=== PATIENT | male | born 1955 | race Caucasian/White ===

== ENCOUNTER 2023-05-28 08:36 | Outpatient (OUT) | payer MEDICARE, OTHER, SELFPAY ==
--- NOTE | 2023-05-28 | VEIN_ITS ---
Patient: SUNNY VILLANUEVA Exam Date: 05/28/2023 : 1955 Gender:M Ordering : DR PRINCESS COLEY M.D. Admission #: [id number] Family : Order #: [id number] CLICK HERE TO VIEW EXAM RADIOLOGY REPORT PROCEDURE: VC EXT VENOUS REFLUX TC LMTD COMPARISON: None. INDICATIONS: Pain due to varicose veins of bilateral legs I83.813 TECHNIQUE: Duplex imaging of the lower extremity to assess the deep and superficial venous system for the presence of deep or superficial venous incompetence and to document the location and severity of disease. The study includes evaluation of the great saphenous vein (GSV), anterior accessory saphenous vein (AASV) and small saphenous vein (SSV). Patient scanned in reverse Trendelenburg and standing. FINDINGS: RIGHT LOWER EXTREMITY: Saphenofemoral Junction Reflux: Yes 10.4mm 4.8 sec GSV: Diam (mm) Reflux/ Time (sec) Proximal Thigh 12.5 Yes 1.6 Mid Thigh 5.6 Yes 4.0 Distal Thigh 5.5 Yes 0.5 Prox Calf 4.8 Yes 2.7 Mid Calf 3.6 Yes 1.7 Saphenopopliteal Junction Reflux: 6.4mm Yes 1.6 SSV: Proximal Calf 5.7 Yes 2.0 Mid Calf 4.2 Yes 0.3 AASV: Proximal Thigh 6.1 Yes 1.4 Mid Thigh 3.4 Yes 2.1 Distal Thigh Thrombi: No acute or chronic thrombus. Compressibility: Normal. Flow: Severe deep venous reflux. Preforator: Distal medial lower leg 3.9mm with 0.5s reflux. Distal medial lower leg 4.0 mm with 0.5s reflux. Tech Note: Plaque noted in proximal NEUROLOGY EPILEPSY PHYSICIAN. Thigh extention of SSV. AASV becomes tortuous approximately 10 cm from SFJ. Incompetent varicose vein medial knee measures 5.1 mm with 0.8s reflux. Medial calf varicosity measures 3.3 mm with 0.5s reflux. Proximal anterior lower leg 1.4s reflux. LEFT LOWER EXTREMITY: Saphenofemoral Junction Reflux: Yes 10.2 mm 3.0 sec GSV: Diam (mm) Reflux/Time (sec) Proximal Thigh 7.6 Yes 1.3 Mid Thigh 5.4 Yes 0.6 Distal Thigh 4.9 Yes 0.2 Prox Calf 5.1 Yes 2.2 Mid Calf 3.6 Yes 0.3 Saphenopopliteal Junction Relux: 5.5 mm Yes 3.7 SSV: Proximal Calf 5.5 Yes 4.8 Mid Calf 3.5 Yes 0.3 AASV: Proximal Thigh 6.5 Yes 0.8 Mid Thigh 2.9 Yes 0.4 Distal Thigh Thrombi: No acute or chronic thrombus. Compressibility: Normal. Flow: Mild deep venous reflux. Golf Course Superintendent: Distal medial lower leg 4.3mm with 2.5s reflux. Mid medial lower leg 5.9mm with 4.3s reflux. Tech Note: Thigh extention of SSV. AASV becomes tortuous approximately 6 cm from SFJ. Incompetent varicose vein measures 4.0 mm with 4.5s reflux. Distal medial lower leg varicose vein off automotive sales associate measures 6.2 mm with 1.1s reflux. Distal medial lower leg varicose vein measures 3.3 mm with 0.3s reflux. Varicose vein proximal posterior calf measures 2.8 mm with 2.5s reflux. CONCLUSION: 1. Dilated, incompetent bilateral great saphenous veins, bilateral small saphenous veins, and right anterior accessory saphenous vein. 2. Numerous dilated and incompetent branch saphenous varicosities bilaterally. 3. Dilated and incompetent distal lower extremity automotive sales associate veins bilaterally. Dictated by: Glen Mccormack M.D. on 05/28/2023 at 10:35 Approved by: Glen Mccormack M.D. on 05/28/2023 at 11:59
--- NOTE | 2023-05-28 | VEIN_ITS ---
Patient: SUNNY VILLANUEVA Exam Date: 05/28/2023 : 1955 Gender:M Ordering : DR PRINCESS COLEY M.D. Admission #: [id number] Family : Order #: [id number] CLICK HERE TO VIEW EXAM RADIOLOGY REPORT PROCEDURE: VC FACILITY EST COMPREHENSIVE VEIN CENTER - OFFICE VISIT INITIAL COMPARISON: None. PROGRESS NOTES: [age] year old male who presents with a 3 year history of bulging dilated veins, leg pain, swelling, muscle cramping, and edema. The patient's right leg symptoms are worse than the left. There has been a progression of symptoms over past 3 years. This increases with prolonged leg dependency. The patient describes an improvement with rest and elevation. The patient denies any signs and symptoms to suggest arterial ischemia. The patient describes a family history varicose vein on maternal side, heart disease, hypertension. The patient has drinking and smoking history : no alcohol consumption. Quit smoking 2000. Patient has a past medical history significant for hypertension, myocardial infarction, hypercholesterolemia, recent back surgery. The patient denies a history of deep venous thrombus or pulmonary embolus. See separate history and physical for medication list. No prior treatment for varicose or spider veins. Prior treatment included use of compression stockings. After review of nurse notes, history and physical exam I discussed at length the pathophysiology of venous hypertension and possible treatments, therapies and strategies available. We discussed at length the importance of elevating the lower extremities above the level of the heart, increased physical activity and compression stocking use. Ultrasound venous reflux study performed today was discussed at length with the patient. The report demonstrates abnormally dilated and incompetent bilateral great saphenous veins, bilateral small saphenous veins, right anterior accessory saphenous vein, and numerous incompetent branch saphenous varicosities bilaterally.. PHYSICAL EXAM: The right leg demonstrates several varicosities, a few scattered spider veins, no ulceration, moderate edema, no skin discoloration. The left leg demonstrates several varicosities, a few scattered spider veins, no ulceration, moderate edema, no skin discoloration. Both thighs, legs and feet were symmetrically warm to the touch. Good posterior tibial and dorsalis pedis pulses were present bilaterally. VEIN/VC Facility EST Comprehensive IMPRESSION: 1. Extensive bilateral lower extremity venous insufficiency 2. Numerous bilateral lower extremity varicose veins 3. Moderate bilateral lower extremity subcutaneous edema 4. No flow significant arterial disease 5. CEAP: C3, EC, AP, AR PLAN: 1. Continued use of compression stockings 2. Elevated legs and increased physical activity symptomatic relief 3. Endovenous laser ablation of bilateral great saphenous veins, on bilateral small saphenous veins, and right anterior accessory saphenous vein. 4. Microfoam chemical ablation of bilateral incompetent branch saphenous varicosities. Nurse notes, history and physical were reviewed and confirmed, see attached forms. The nurse was present throughout the physical exam and consultation Dictated by: Glen Mccormack M.D. on 05/28/2023 at 11:59 Approved by: Glen Mccormack M.D. on 05/28/2023 at 12:06
== END 2023-05-28 08:37 | disposition home or self-care (01) ==
LOC: VC 08:37
PROVIDERS: PCP Radiology Diagnostic Radiology; Visit Provider Radiology Diagnostic Radiology
DX: I83.813 Varicose veins of bilateral lower extremities with pain (principal)
CPT/HCPCS: 93970; G0463

== ENCOUNTER 2023-06-05 13:09 | Outpatient (OUT) | payer MEDICARE, OTHER, SELFPAY ==
--- NOTE | 2023-06-05 13:10 | VEIN_ITS ---
[address] [address] Patient Name: SUNNY VILLANUEVA MRN: [id number] date: 1955 Sex: M Assigned Patient Location: Current Patient Location: Accession/Order Number: [id number] Exam Date: 06/05/2023 13:15 Report Date: 06/06/2023 07:15 At the request of: PRINCESS COLEY Procedure: VC Endovenous Ablation 1VeinRT EXAMINATION: VC Endovenous Ablation 1VeinRT HISTORY: I83.813 Pain due to varicose veins of bilateral legs COMPARISON: No relevant comparison available. TECHNIQUE: The risks and benefits of the procedure had been previously discussed, and were rediscussed at length. Informed written consent was obtained. Nilam Whyte and Ac Corey assisted. Time out procedure was performed. The right lower extremity was prepared and draped in the usual sterile fashion to allow knee flexion in the sterile field. Duplex ultrasound probe was draped in a sterile cover, sterile transmission gel was used. Venous mapping was performed with the areas of dilation and large tributaries marked. The total length was 62 cm from the entry 8 cm above the medial malleolus to 3 cm below the saphenofemoral junction. The diameter of the greater saphenous vein ranged from 5-11 mm. A 30 gauge needle and 1% buffered lidocaine was used to anesthetize the entry site. A 4 mm incision was made with a scalpel and the saphenous vein was entered percutaneously under direct ultrasound guidance with a micropuncture set, a single stick was successful in gaining access. A micro-guide wire was inserted and the needle removed. A micro-set including a dilator was inserted over the microwire and the needle and dilator were removed. A 0.018 guide wire was inserted through the micro-set and threaded through the saphenous vein to the saphenofemoral junction. The dilator was removed and an introducer sheath was inserted over the wire until the end of the sheath entered the saphenofemoral junction. The dilator and wire were removed and the 600 micron fiber was introduced and placed and positioned so that it extended beyond the sheath and was 3 cm peripheral to the saphenofemoral femoral junction. Final position of the fiber was determined by ultrasound guidance and duplex imaging. Tumescent anesthetic was delivered by ultrasound guidance. 350 cc of fluid was delivered along the entire course of the saphenous vein. The solution consisted of 1000 cc of normal saline with 40 mL of 1% lidocaine and 20 mL of sodium bicarbonate. A final positioning check was made. The energy source was turned on by means of the foot pedal and the fiber and sheath were withdrawn. The total number of Joules delivered was 2900. The laser was active for 363 seconds under continuous pulse, average laser use of 8 J. Laser start time 1406. 06/05/2023 . Laser stop time 1414 06/05/2023 . A duplex ultrasound revealed compressibility and flow at the saphenofemoral junction immediately after the procedure. Hemostasis at the access site was achieved. The skin incision of the saphenous vein was closed with a 4 x 4. A compression stocking was applied. Postop instructions were given. A follow up appointment was recommended and scheduled. The patient tolerated the procedure well and was discharged in good condition . VEIN/VC Endovenous Ablation 1VeinRT IMPRESSION: Technically successful endovenous laser ablation of the right great saphenous vein Electronically authenticated by: PRINCESS COLEY Date: 06/06/2023 07:15
[2023-06-05] MEDS: LIDOCAINE HCL 10 ML, SODIUM BICARBONATE 1 MEQ INJ (13:52)
[2023-06-05] MEDS: 0.9 % SODIUM CHLORIDE 500 ML, LIDOCAINE HCL 20 ML, SODIUM BICARBONATE 10 MEQ INJ (13:53)
== END 2023-06-05 13:10 | disposition home or self-care (01) ==
LOC: VC 13:09
PROVIDERS: PCP Radiology Diagnostic Radiology; Visit Provider Radiology Diagnostic Radiology
DX: I83.813 Varicose veins of bilateral lower extremities with pain (principal)
CPT/HCPCS: 36478

== ENCOUNTER 2023-06-11 13:10 | Outpatient (OUT) | payer MEDICARE, OTHER, SELFPAY ==
--- NOTE | 2023-06-11 13:14 | VEIN_ITS ---
Patient: SUNNY VILLANUEVA Exam Date: 06/11/2023 : 1955 Gender:M Ordering : DR PRINCESS COLEY M.D. Admission #: [id number] Family : Order #: [id number] CLICK HERE TO VIEW EXAM RADIOLOGY REPORT PROCEDURE: VC EXT VENOUS RT LMTD COMPARISON: None. INDICATIONS: I80.01 Phlebitis of superficial veins of rt lower extremity TECHNIQUE: Lower extremity verduzco scale and Duplex Doppler evaluation of the deep venous system from the inguinal ligament through the calf veins. FINDINGS: REGION: Right lower extremity. THROMBI: Negative for DVT. Heat induced thrombus in GSV 3.6 cm from SFJ and extends to distal lower leg. COMPRESSIBILITY: Non-compressible segments. FLOW: Areas of no flow. OTHER: Varicose veins remain. CONCLUSION: 1. Successful post ablation occlusion of right great saphenous vein. Dictated by: Glen Mccormack M.D. on 06/11/2023 at 14:07 Approved by: Glen Mccormack M.D. on 06/11/2023 at 14:08
--- NOTE | 2023-06-11 13:14 | VEIN_ITS ---
Patient: SUNNY VILLANUEVA Exam Date: 06/11/2023 : 1955 Gender:M Ordering : DR PRINCESS COLEY M.D. Admission #: [id number] Family : Order #: [id number] CLICK HERE TO VIEW EXAM RADIOLOGY REPORT PROCEDURE: FACILITY EST LMTD VEIN CENTER - OFFICE VISIT FOLLOW UP COMPARISON: None. PROGRESS NOTES: The patient reports improvement in leg symptoms. There has been interval reduction in varicosities. The patient has followed our recommendations to walk 20-30 minutes once or twice per day since the procedure. Physical exam demonstrates decrease in varicosities of the leg. Persistent varicosities are identified along the legs bilaterally. Review of the ultrasound performed the same day demonstrates occlusive thrombus extending throughout the treated vein(s), see separate report, consistent with a successful ablation. No thrombus extending into or beyond the saphenofemoral junction. The patient expressed a desire to proceed with treatment of remaining dilated and incompetent varicosities. The patient was informed that treatment was a process and would require several procedures/sessions. VEIN/ Facility EST LMTD IMPRESSION: 1. Successful ablation of the right great saphenous vein(s). 2. Persistent dilated incompetent veins and bilateral lower extremity symptoms. PLAN: 1. Endovenous laser ablation of left great saphenous vein. Nurse notes, history and physical were reviewed and confirmed, see attached forms. The nurse was present throughout the physical exam and consultation Dictated by: Glen Mccormack M.D. on 06/11/2023 at 14:08 Approved by: Glen Mccormack M.D. on 06/11/2023 at 14:09
== END 2023-06-11 13:11 | disposition home or self-care (01) ==
LOC: VC 13:11
PROVIDERS: PCP Radiology Diagnostic Radiology; Visit Provider Radiology Diagnostic Radiology
DX: I80.01 Phlebitis and thrombophlebitis of superficial vessels of right lower extremity (principal)
CPT/HCPCS: 93971; G0463

== ENCOUNTER 2023-06-15 10:13 | Outpatient (OUT) | payer MEDICARE, OTHER, SELFPAY ==
--- NOTE | 2023-06-15 10:14 | VEIN_ITS ---
The [address] [address] Patient Name: SUNNY VILLANUEVA MRN: [id number] date: 1955 Sex: M Assigned Patient Location: Current Patient Location: Accession/Order Number: [id number] Exam Date: 06/15/2023 10:20 Report Date: 06/15/2023 11:48 At the request of: PRINCESS COLEY Procedure: VC Endovenous Ablation 1VeinLT EXAMINATION: VC Endovenous Ablation 1VeinLT HISTORY: I83.813 Pain due to varicose veins of bilateral leg veins The risks and benefits of the procedure had been previously discussed, and were rediscussed at length. Informed written consent was obtained. Clemencia Ashley RN and Suzi Escalante RDMS assisted. Time out procedure was performed. The left lower extremity was prepared and draped in the usual sterile fashion to allow knee flexion in the sterile field. Duplex ultrasound probe was draped in a sterile cover, sterile transmission gel was used. Venous mapping was performed with the areas of dilation and large tributaries marked. The total length was 62 cm from the entry 3 cm above the medial malleolus to 3 cm below the saphenofemoral junction. The diameter of the greater saphenous vein ranged from 7.6 mm. A 30 gauge needle and 1% buffered lidocaine was used to anesthetize the entry site. A 4 mm incision was made with a scalpel and the saphenous vein was entered percutaneously under direct ultrasound guidance with a micropuncture set, a single stick was successful in gaining access. A micro-guide wire was inserted and the needle removed. A micro-set including a dilator was inserted over the microwire and the needle and dilator were removed. A guide wire was inserted through the micro-set and guided through the saphenous vein to the saphenofemoral junction. The dilator was removed and an introducer sheath was inserted over the wire until the end of the sheath entered the saphenofemoral junction. The dilator and wire were removed and the 600 micron fiber was introduced and placed and positioned so that it extended beyond the sheath and was 3 cm distal to the saphenofemoral femoral junction. Final position of the fiber was determined by ultrasound guidance and duplex imaging. Tumescent anesthetic was delivered by ultrasound guidance. 350 cc of fluid was delivered along the entire course of the saphenous vein. The solution consisted of 1000 cc of normal saline with 40 mL of 1% lidocaine and 20 mL of sodium bicarbonate. A final positioning check was made. The energy source was turned on by means of the foot pedal and the fiber and sheath were withdrawn. The total number of Joules delivered was 3352. The laser was active for 419seconds under continuous pulse, average laser use of 8 J. Laser start time 11:12 AM, 06/07/2023. Laser stop time 11:23 AM, 06/15/2023. A duplex ultrasound revealed compressibility and flow at the saphenofemoral junction immediately after the procedure. Hemostasis at the access site was achieved. The skin incision of the saphenous vein was closed with a 4 x 4. A compression stocking was applied. Postop instructions were given. A follow up appointment was recommended and scheduled. The patient tolerated the procedure well. Electronically authenticated by: KATIANA CORDOBA Date: 06/15/2023 11:48
[2023-06-15] MEDS: LIDOCAINE HCL 10 ML, SODIUM BICARBONATE 1 MEQ INJ (12:16)
[2023-06-15] MEDS: 0.9 % SODIUM CHLORIDE 500 ML, LIDOCAINE HCL 20 ML, SODIUM BICARBONATE 10 MEQ INJ (12:25)
== END 2023-06-15 10:14 | disposition home or self-care (01) ==
LOC: VC 10:14
PROVIDERS: PCP Radiology Diagnostic Radiology; Visit Provider Radiology Diagnostic Radiology
DX: I83.813 Varicose veins of bilateral lower extremities with pain (principal)
CPT/HCPCS: 36478

== ENCOUNTER 2023-06-21 08:27 | Outpatient (OUT) | payer MEDICARE, OTHER, SELFPAY ==
--- NOTE | 2023-06-21 08:28 | VEIN_ITS ---
Patient: SUNNY VILLANUEVA Exam Date: 06/21/2023 : 1955 Gender:M Ordering : DR PRINCESS COLEY M.D. Admission #: [id number] Family : Order #: [id number] CLICK HERE TO VIEW EXAM RADIOLOGY REPORT PROCEDURE: [facility] EST LMTD VEIN CENTER - OFFICE VISIT FOLLOW UP [facility] PROGRESS NOTES: The patient reports improvement in leg symptoms. There has been interval reduction in varicosities. The patient has followed our recommendations to walk 20-30 minutes once or twice per day since the procedure. Patient has no known arterial vascular disease, but describes symptoms while walking the could be secondary to peripheral vascular disease. Physical exam demonstrates decrease in varicosities of the leg. Persistent varicosities are identified along the legs bilaterally. Review of the ultrasound performed the same day demonstrates occlusive thrombus extending throughout the treated vein(s), see separate report, consistent with a successful ablation. No thrombus extending into or beyond the saphenofemoral junction. The patient expressed a desire to proceed with treatment of remaining incompetent varicose veins. The patient was informed that treatment was a process and would require several procedures/sessions. VEIN/[facility] EST LMTD IMPRESSION: 1. Successful ablation of the left great saphenous vein(s). 2. Persistent incompetent varicose veins and bilateral lower extremity symptoms. PLAN: 1. Endovenous laser ablation of right small saphenous vein. 2. Ultrasound evaluation of bilateral lower extremity arteries to evaluate for arterial peripheral vascular disease which could be contributing to patient's symptoms which occur while walking. Nurse notes, history and physical were reviewed and confirmed, see attached forms. The nurse was present throughout the physical exam and consultation Dictated by: Glen Mccormack M.D. on 06/21/2023 at 11:24 Approved by: Glen Mccormack M.D. on 06/21/2023 at 11:27
--- NOTE | 2023-06-21 08:28 | VEIN_ITS ---
Patient: SUNNY VILLANUEVA Exam Date: 06/21/2023 : 1955 Gender:M Ordering : DR PRINCESS COLEY M.D. Admission #: [id number] Family : Order #: [id number] CLICK HERE TO VIEW EXAM RADIOLOGY REPORT PROCEDURE: VC EXT VENOUS LT LIMITED COMPARISON: None. INDICATIONS: I80.02 Phlebitis of superficial veins of lt lower extremity TECHNIQUE: Lower extremity verduzco scale and Duplex Doppler evaluation of the deep venous system from the inguinal ligament through the calf veins. FINDINGS: REGION: Left lower extremity. THROMBI: Negative for DVT. Heat induced thrombus in left GSV 2.8 cm from SFJ and extends to distal lower leg. COMPRESSIBILITY: Non-compressible segments. FLOW: Areas of no flow. OTHER: CONCLUSION: 1. Successful post ablation occlusion of left great saphenous vein. Dictated by: Glen Mccormack M.D. on 06/21/2023 at 11:23 Approved by: Glen Mccormack M.D. on 06/21/2023 at 11:23
== END 2023-06-21 08:28 | disposition home or self-care (01) ==
LOC: VC 08:27
PROVIDERS: PCP Radiology Diagnostic Radiology; Visit Provider Radiology Diagnostic Radiology
DX: I80.02 Phlebitis and thrombophlebitis of superficial vessels of left lower extremity (principal); I83.813 Varicose veins of bilateral lower extremities with pain
CPT/HCPCS: 93971; G0463

== ENCOUNTER 2023-06-29 08:59 | Outpatient (OUT) | payer MEDICARE, OTHER, SELFPAY ==
--- NOTE | 2023-06-29 | VEIN_ITS ---
[address] [address] Patient Name: SUNNY VILLANUEVA MRN: [id number] date: 1955 Sex: M Assigned Patient Location: Current Patient Location: Accession/Order Number: [id number] Exam Date: 06/29/2023 09:00 Report Date: 06/29/2023 10:04 At the request of: PRINCESS COLEY Procedure: VC Endovenous Ablation 1VeinRT EXAMINATION: VC Endovenous Ablation 1VeinRT HISTORY: Pain due to varicose veins of bilateral legs I83.813 The risks and benefits of the procedure had been previously discussed, and were rediscussed at length. Informed written consent was obtained. Ac Corey RN and Suzi Escalante RDMS assisted. Time out procedure was performed. The right lower extremity was prepared and draped in the usual sterile fashion to allow knee flexion in the sterile field. Duplex ultrasound probe was draped in a sterile cover, sterile transmission gel was used. Venous mapping was performed with the areas of dilation and large tributaries marked. The total length was 27 cm from the entry 3 cm above the calf to 3 cm below the saphenofemoral popliteal junction. The diameter of the right small saphenous vein ranged from 5.7 mm. A 30 gauge needle and 1% buffered lidocaine was used to anesthetize the entry site. A 4 mm incision was made with a scalpel and the saphenous vein was entered percutaneously under direct ultrasound guidance with a micropuncture set, a single stick was successful in gaining access. A micro-guide wire was inserted and the needle removed. A micro-set including a dilator was inserted over the microwire and the needle and dilator were removed. A guide wire was inserted through the micro-set and guided through the saphenous vein to the saphenofemoral junction. The dilator was removed and an introducer sheath was inserted over the wire until the end of the sheath entered the saphenofemoral junction. The dilator and wire were removed and the 600 micron fiber was introduced and placed and positioned so that it extended beyond the sheath and was 3 cm distal to the saphenofemoral or saphenopopliteal junction. Final position of the fiber was determined by ultrasound guidance and duplex imaging. Tumescent anesthetic was delivered by ultrasound guidance. 201,495 cc of fluid was delivered along the entire course of the saphenous vein. The solution consisted of 1000 cc of normal saline with 40 mL of 1% lidocaine and 20 mL of sodium bicarbonate. A final positioning check was made. The energy source was turned on by means of the foot pedal and the fiber and sheath were withdrawn. The total number of Joules delivered was 187. The laser was active for 9:43 AM seconds under continuous pulse, average laser use of 8 J. Laser start time 06/29/2023, 9:46 AM. Laser stop time 9:46 AM, 06/29/2023. A duplex ultrasound revealed compressibility and flow at the saphenofemoral junction immediately after the procedure. Hemostasis at the access site was achieved. The skin incision of the saphenous vein was closed with a 4 x 4. A compression stocking was applied. Postop instructions were given. A follow up appointment was recommended and scheduled. The patient tolerated the procedure well. Electronically authenticated by: KATIANA CORDOBA Date: 06/29/2023 10:04
[2023-06-29] MEDS: LIDOCAINE HCL 10 ML, SODIUM BICARBONATE 1 MEQ INJ (09:15)
[2023-06-29] MEDS: 0.9 % SODIUM CHLORIDE 500 ML, LIDOCAINE HCL 20 ML, SODIUM BICARBONATE 10 MEQ INJ (10:19)
== END 2023-06-29 09:00 | disposition home or self-care (01) ==
LOC: VC 08:59
PROVIDERS: PCP Radiology Diagnostic Radiology; Visit Provider Radiology Diagnostic Radiology
DX: I83.813 Varicose veins of bilateral lower extremities with pain (principal)
CPT/HCPCS: 36478

== ENCOUNTER 2023-07-05 11:13 | Outpatient (OUT) | payer MEDICARE, OTHER, SELFPAY ==
--- NOTE | 2023-07-05 11:15 | VEIN_ITS ---
Patient: SUNNY VILLANUEVA Exam Date: 07/05/2023 : 1955 Gender:M Ordering : DR PRINCESS COLEY M.D. Admission #: [id number] Family : Order #: [id number] CLICK HERE TO VIEW EXAM RADIOLOGY REPORT PROCEDURE: [facility] EST LMTD VEIN CENTER - OFFICE VISIT FOLLOW UP [facility] PROGRESS NOTES: The patient reports improvement in leg symptoms. There has been interval reduction in varicosities. The patient has followed our recommendations to walk 20-30 minutes once or twice per day since the procedure. Patient describes legs feeling better and improved color of skin. Physical exam demonstrates decrease in varicosities of the leg. Persistent varicosities are identified along the legs bilaterally. Review of the ultrasound performed the same day demonstrates occlusive thrombus extending throughout the treated vein(s), see separate report, consistent with a successful ablation. No thrombus extending into or beyond the saphenofemoral junction. The patient expressed a desire to proceed with treatment of remaining incompetent varicosities. The patient was informed that treatment was a process and would require several procedures/sessions. VEIN/[facility] EST LMTD IMPRESSION: 1. Successful ablation of the right small saphenous vein(s). 2. Persistent incompetent varicose veins and bilateral lower extremity symptoms. PLAN: Endovenous laser ablation of left small saphenous vein. Nurse notes, history and physical were reviewed and confirmed, see attached forms. The nurse was present throughout the physical exam and consultation Dictated by: Glen Mccormack M.D. on 07/05/2023 at 14:41 Approved by: Glen Mccormack M.D. on 07/05/2023 at 14:42
--- NOTE | 2023-07-05 11:15 | VEIN_ITS ---
Patient: SUNNY VILLANUEVA Exam Date: 07/05/2023 : 1955 Gender:M Ordering : DR PRINCESS COLEY M.D. Admission #: [id number] Family : Order #: [id number] CLICK HERE TO VIEW EXAM RADIOLOGY REPORT PROCEDURE: VC EXT VENOUS RT LMTD COMPARISON: VC EXT VENOUS RT LMTD, 06/11/2023. INDICATIONS: I80.01 Phlebitis of superficial veins of rt lower extremity TECHNIQUE: Lower extremity verduzco scale and Duplex Doppler evaluation of the deep venous system from the inguinal ligament through the calf veins. FINDINGS: REGION: Right lower extremity. THROMBI: Negative for DVT. Heat induced thrombus visualized arising at distal thigh and extending through mid calf. COMPRESSIBILITY: Non-compressible segments. FLOW: Areas of no flow. OTHER: CONCLUSION: 1. Successful post ablation occlusion of right small saphenous vein. Dictated by: Glen Mccormack M.D. on 07/05/2023 at 14:39 Approved by: Glen Mccormack M.D. on 07/05/2023 at 14:41
== END 2023-07-05 11:14 | disposition home or self-care (01) ==
LOC: VC 11:14
PROVIDERS: PCP Radiology Diagnostic Radiology; Visit Provider Radiology Diagnostic Radiology
DX: I80.01 Phlebitis and thrombophlebitis of superficial vessels of right lower extremity (principal)
CPT/HCPCS: 93971; G0463

== ENCOUNTER 2023-07-20 10:17 | Outpatient (OUT) | payer MEDICARE, OTHER, SELFPAY ==
--- NOTE | 2023-07-20 10:18 | VEIN_ITS ---
[address] [address] Patient Name: SUNNY VILLANUEVA MRN: [id number] date: 1955 Sex: M Assigned Patient Location: Current Patient Location: Accession/Order Number: [id number] Exam Date: 07/20/2023 10:22 Report Date: 07/20/2023 11:41 At the request of: PRINCESS COLEY Procedure: VC Endovenous Ablation 1VeinLT EXAMINATION: VC Endovenous Ablation 1Vein , left small saphenous vein HISTORY: I83.813 Pain due to varicose veins of bilateral legs COMPARISON: No relevant comparison available. TECHNIQUE: The risks and benefits of the procedure had been previously discussed, and were rediscussed at length. Informed written consent was obtained. Francine assisted. Time out procedure was performed. The left lower extremity was prepared and draped in the usual sterile fashion . Duplex ultrasound probe was draped in a sterile cover, sterile transmission gel was used. Venous mapping was performed with the areas of dilation and large tributaries marked. The total length was 30 cm from the entry 4 cm above the lateral malleolus to where the vein begins to dive deep. The diameter of the small saphenous vein ranged from 5-7 mm. A 30 gauge needle and 1% buffered lidocaine was used to anesthetize the entry site. A 4 mm incision was made with a scalpel and the saphenous vein was entered percutaneously under direct ultrasound guidance with a micropuncture set, a single stick was successful in gaining access. A micro-guide wire was inserted and the needle removed. A micro-set including a dilator was inserted over the microwire and the needle and dilator were removed. A .018 guide wire was inserted through the micro-set and threaded through the saphenous. The dilator was removed and an introducer sheath was inserted over the wire . The dilator and wire were removed and the 600 micron fiber was introduced and placed and positioned so that it extended beyond the sheath and. Final position of the fiber was determined by ultrasound guidance and duplex imaging. Tumescent anesthetic was delivered by ultrasound guidance. 100 cc of fluid was delivered along the entire course of the saphenous vein. The solution consisted of 1000 cc of normal saline with 40 mL of 1% lidocaine and 20 mL of sodium bicarbonate. A final positioning check was made. The energy source was turned on by means of the foot pedal and the fiber and sheath were withdrawn. The total number of Joules delivered was 1426. The laser was active for 178 seconds under continuous pulse, average laser use of 8 J. Laser start time 10:56 AM 07/20/2023 . Laser stop time 11:00 AM 07/20/2023 . A duplex ultrasound revealed compressibility and flow at the saphenofemoral junction immediately after the procedure. Hemostasis at the access site was achieved. The skin incision of the saphenous vein was closed with a 4 x 4. A compression stocking was applied. Postop instructions were given. A follow up appointment was recommended and scheduled. The patient tolerated the procedure well and was discharged in good condition . VEIN/VC Endovenous Ablation 1VeinLT IMPRESSION: Technically successful endovenous laser ablation of the left small saphenous vein Electronically authenticated by: PRINCESS COLEY Date: 07/20/2023 11:41
[2023-07-20] MEDS: 0.9 % SODIUM CHLORIDE 500 ML, LIDOCAINE HCL 20 ML, SODIUM BICARBONATE 10 MEQ INJ (11:19)
== END 2023-07-20 10:18 | disposition home or self-care (01) ==
LOC: VC 10:17
PROVIDERS: PCP Radiology Diagnostic Radiology; Visit Provider Radiology Diagnostic Radiology
DX: I83.813 Varicose veins of bilateral lower extremities with pain (principal)
CPT/HCPCS: 36478

== ENCOUNTER 2023-07-25 11:21 | Outpatient (OUT) | payer MEDICARE, OTHER, SELFPAY ==
--- NOTE | 2023-07-25 | VEIN_ITS ---
Patient: SUNNY VILLANUEVA Exam Date: 07/25/2023 : 1955 Gender:M Ordering : DR SAM KILGORE M.D. Admission #: [id number] Family : Order #: [id number] CLICK HERE TO VIEW EXAM RADIOLOGY REPORT PROCEDURE: VC EXT VENOUS LT LIMITED COMPARISON: VC EXT VENOUS LT LIMITED, 06/21/2023. INDICATIONS: Phlebitis of superficial veins of lt lower extremity I80.02 TECHNIQUE: Lower extremity verduzco scale and Duplex Doppler evaluation of the deep venous system from the inguinal ligament through the calf veins. FINDINGS: REGION: Left lower extremity. THROMBI: Negative for DVT. Heat induced thrombus in left SSV 2.6 cm from SPJ and extends to distal lower leg. COMPRESSIBILITY: Non-compressible segments corresponding through. FLOW: Absent flow corresponding to thrombus OTHER: Varicose veins remain. CONCLUSION: Post ablation occlusion of the left small saphenous vein with heat induced thrombus 2.6 cm from the saphenofemoral junction Dictated by: Sam Kilgore MD on 07/25/2023 at 11:59 Approved by: Sam Kilgore MD on 07/25/2023 at 12:00
--- NOTE | 2023-07-25 | VEIN_ITS ---
Patient: SUNNY VILLANUEVA Exam Date: 07/25/2023 : 1955 Gender:M Ordering : DR SAM KILGORE M.D. Admission #: [id number] Family : Order #: [id number] CLICK HERE TO VIEW EXAM RADIOLOGY REPORT PROCEDURE: FACILITY EST LMTD VEIN CENTER - OFFICE VISIT FOLLOW UP COMPARISON: FACILITY EST LMTD, 07/05/2023. FACILITY EST LMTD, 06/21/2023. PROGRESS NOTES: The patient reports no problems following intravenous laser ablation of the left small saphenous vein. The patient has worn his compression stockings. The patient did not require oral analgesics. The patient has tried to exercise within his ability given his physical limitations. Physical exam demonstrates no significant bruising. No areas of erythema or warmth to suggest cellulitis or thrombophlebitis. No active ulceration. The thrombosed left small saphenous vein can be palpated. Review of the ultrasound performed the same day demonstrates occlusive thrombus extending throughout the treated left small saphenous vein with heat induced thrombus 2.6 cm from the saphenous popliteal junction period no deep vein thrombus. Ultrasound of the right anterior accessory saphenous vein demonstrates mild dilatation however venous reflux is decreased to less than 1 second and treatment was therefore not recommended at this time. This was discussed with the patient. The patient does complain of moderate to severe right hip pain which is a new finding. The patient expressed a desire to proceed with treatment of incompetent varicose veins with micro foam chemical ablation. VEIN/ Facility EST LMTD IMPRESSION: 1. Successful ablation of the left small saphenous vein 2. Persistent bilateral incompetent varicose veins. PLAN: Micro foam chemical ablation right leg X-ray of the right hip Nurse notes, history and physical were reviewed and confirmed, see attached forms. The nurse was present throughout the physical exam and consultation Dictated by: Sam Kilgore MD on 07/25/2023 at 12:34 Approved by: Sam Kilgore MD on 07/25/2023 at 12:37
== END 2023-07-25 11:22 | disposition home or self-care (01) ==
LOC: VC 11:21
PROVIDERS: PCP Radiology Diagnostic Radiology; Visit Provider Radiology Diagnostic Radiology
DX: M25.551 Pain in right hip (principal); M47.816 Spondylosis without myelopathy or radiculopathy, lumbar region; I80.02 Phlebitis and thrombophlebitis of superficial vessels of left lower extremity
CPT/HCPCS: 73502; 93971; G0463

== ENCOUNTER 2023-07-25 12:59 | Outpatient (OUT) | payer MEDICARE, OTHER, SELFPAY ==
--- NOTE | 2023-07-25 13:04 | XR_ITS ---
The [address] [address] Patient Name: SUNNY VILLANUEVA MRN: [id number] date: 1955 Sex: M Assigned Patient Location: [facility] Current Patient Location: RAD Accession/Order Number: [id number] Exam Date: 07/25/2023 13:14 Report Date: 07/25/2023 14:13 At the request of: PRINCESS COLEY Procedure: XR hip RT 2V w/ pelvis PROCEDURE: XR hip RT 2V w/ pelvis DATE: 07/25/2023 12:14 PM CDT COMPARISONS: None CLINICAL INDICATION: Right hip pain M25.551 FINDINGS: There is no evidence of fractures or other acute osseous abnormalities. There is mild narrowing of the superior acetabular femoral joint spaces bilaterally probably representing mild developing hip degenerative changes. There is degenerative spondylosis of the lower lumbar spine seen on frontal view the pelvis. XR/XR hip RT 2V w/ pelvis IMPRESSION: Probable mild bilateral hip degenerative changes. Evidence of lower lumbar degenerative spondylosis. No evidence of acute osseous abnormality. Electronically authenticated by: LINDA PRICE Date: 07/25/2023 14:13
== END 2023-07-25 13:00 | disposition home or self-care (01) ==
LOC: RAD 12:59
PROVIDERS: PCP Radiology Diagnostic Radiology; Visit Provider Radiology Diagnostic Radiology
DX: M25.551 Pain in right hip (principal); M47.816 Spondylosis without myelopathy or radiculopathy, lumbar region
CPT/HCPCS: 73502

== ENCOUNTER 2023-08-06 14:05 | Outpatient (OUT) | payer MEDICARE, OTHER, SELFPAY ==
--- NOTE | 2023-08-06 14:54 | CA_ITS ---
The [facility] Test Date: 2023-08-06 Pat Name: Josafat Dangelo Department: Room: - Gender: Male Show Host Or Hostess: : 1955 Requested By: [id number] Order Number: [id number] Reading MD: DORIAN RALPH Interpretive Statements BIphasic doppler waveforms PVR waveforms with normal upstroke, amplitude and dicrotic notch Right: - significant pressure gradient between the thigh and calf cuff - normal NANDO, TBI Left: - signficant pressure gradient between the thigh and calf cuff - normal NANDO, TBI IMpression: - elevated thigh indices consistent with calcified, noncompressible arterial renteria, which may underestimate the degree of arterial disease - normal arterial evaluation of the lower extremities without hemodynamic impairment of the B/L lower extremities at rest (right NANDO 1.29, left NANDO 1.23) Electronically Signed On 08-07-2023 7:01:25 EDT by ODRIAN RALPH
== END 2023-08-06 14:06 | disposition home or self-care (01) ==
LOC: CARD 14:05
PROVIDERS: PCP Radiology Diagnostic Radiology; Visit Provider Radiology Diagnostic Radiology
DX: I73.9 Peripheral vascular disease, unspecified (principal)
CPT/HCPCS: 93923

== ENCOUNTER 2023-08-13 14:34 | Outpatient (OUT) | payer MEDICARE, OTHER, SELFPAY ==
--- NOTE | 2023-08-13 14:36 | VEIN_ITS ---
[address] [address] Patient Name: SUNNY VILLANUEVA MRN: [id number] date: 1955 Sex: M Assigned Patient Location: Current Patient Location: Accession/Order Number: [id number] Exam Date: 08/13/2023 14:30 Report Date: 08/13/2023 15:59 At the request of: PRINCESS COLEY Procedure: VC INJ Foam Sclerosant WUS PRODUCTION ADMINISTRATIVE ASSISTANT PROCEDURE: VC INJ Foam Sclerosant WUS PRODUCTION ADMINISTRATIVE ASSISTANT HISTORY: Pain due to varicose veins of bilateral legs I83.813 Pre-operative Diagnosis: CEAP class C3 venous insufficiency with pain, tenderness, edema and incompetent branch saphenous vein(s), chronic venous insufficiency right leg secondary to venous incompetence Post-operative Diagnosis: CEAP class C3 venous insufficiency with pain, tenderness, edema and incompetent branch saphenous vein(s), chronic venous insufficiency right leg secondary to venous incompetence Procedure Performed: 1. Ultrasound-guided microfoam chemical ablation with Varithenaregistered 2. Intraoperative ultrasound guidance Physician: Glen Mccormack M.D. Anesthesia: None Indications for Procedure: 68 year old male. Symptoms including lower extremity dilated bulging veins, skin changes, edema, pain for many years despite conservative medical therapy including medical compression stockings, exercise and analgesics. Prior procedures include endovenous laser ablation. Multiple incompetent varicosities of the right leg. Duplex scan showed reflux and enlarged diameters up to 4 mm. The patient underwent informed consent including management options where the complications of infection, bleeding, pain, and skin injury were discussed. Particular attention was spent discussing thrombus extension and deep vein thrombosis as well as the possibility of pulmonary embolus and treatment with oral or injectable blood thinners. Procedure: The patient walked to the procedure room. All applicable staff donned appropriate apparel. A procedure timeout was performed to confirm correct patient, correct extremity, correct procedure, and correct room set-up including presence of all applicable supplies, devices, and drugs. A duplex ultrasound, performed by myself confirmed the location and incompetence of branch saphenous varicosities and their course was marked on the skin together with the dilated tributaries. The extent of treatment of the vein and the associated varicosities was determined through ultrasound mapping. The skin was prepped and then punctured with a butterfly needle and advanced under ultrasound guidance. The Varithenaregistered canister was activated and the canister was primed and purged as required in the instructions for use. Varithenaregistered was drawn into a sterile syringe. Varithenaregistered was slowly administered at 0.5-1.0 cc/second with close observation by ultrasound of its course in the vessels. Total volume utilized was: 11 mL (7 mL into a 4 mm varicosity of the anterior distal lower leg; 4 mL intrarenal 4 mm varicosity of the mid medial anterior upper leg). Following administration of Varithenaregistered the leg was elevated and the patient was asked to repeatedly dorsiflex the ankle to limit flow of Varithenaregistered into perforating veins. Once appropriate spasm had been confirmed in the treated veins, the vascular catheter was removed from the leg and light pressure was applied over the puncture site for hemostasis. The common femoral and deep superficial veins were then evaluated for flow and compressibility prior to dressing placement. The lower extremity was kept elevated at 45 degrees above the horizontal and cording material was applied over the saphenous segments and tributaries to allow for eccentric compression over the target vessels including the targeted saphenous vein(s). A multilayer dressing was applied consisting of foam pads, coban and thigh-high 20-30 mm Hg compression elastic support hose were placed on the patient. The leg was lowered only after compression had been applied and the patient was immediately ambulatory. The patient ambulated 10 minutes under supervision and was without apparent concerns at time of release. Post-care instructions include advising patient to keep post-treatment bandages in place and dry for 48 hours, avoid extended periods of inactivity, avoid heavy exercise for one week, wear compression stockings on the treated leg continuously for two weeks, to walk daily for 10 minutes over the next month. The patient was instructed to take an anti-inflammatory medicine as needed and to follow up for color duplex scan of the Saphenous veins, the treated branch saphenous varicosities, the adjacent deep veins, and additional treatment within 7 days. PERSONNEL: Ac Corey RN Electronically authenticated by: GLEN MCCORMACK Date: 08/13/2023 15:59
== END 2023-08-13 14:35 | disposition home or self-care (01) ==
LOC: VC 14:34
PROVIDERS: PCP Radiology Diagnostic Radiology; Visit Provider Radiology Diagnostic Radiology
DX: I83.813 Varicose veins of bilateral lower extremities with pain (principal)
CPT/HCPCS: 36466

== ENCOUNTER 2023-08-17 08:03 | Outpatient (OUT) | payer MEDICARE, OTHER, SELFPAY ==
--- NOTE | 2023-08-17 | VEIN_ITS ---
Patient: SUNNY VILLANUEVA Exam Date: 08/17/2023 : 1955 Gender:M Ordering : DR PRINCESS COLEY M.D. Admission #: [id number] Family : Order #: [id number] CLICK HERE TO VIEW EXAM RADIOLOGY REPORT PROCEDURE: FACILITY EST LMTD VEIN CENTER - OFFICE VISIT FOLLOW UP COMPARISON: [facility] EST TD, 07/25/2023. PROGRESS NOTES: The patient reports improvement in leg symptoms. There has been interval reduction in varicosities. The patient has followed our recommendations to walk 20-30 minutes once or twice per day since the procedure. Physical exam demonstrates decrease in varicosities of the leg. Persistent varicosities are identified along the left leg. Review of the ultrasound performed the same day demonstrates occlusive thrombus extending throughout the treated vein(s), see separate report, consistent with a successful ablation. Deep vein thrombus is present within the mid posterior tibial vein involving 8-10 cm segment. VEIN/ Facility EST LMTD IMPRESSION: 1. Segment of deep vein thrombus within the mid right posterior tibial vein. 2. Successful ablation of the treated right leg branch saphenous vein(s). 3. Persistent left lower extremity varicose veins and mild symptoms. PLAN: 1. Patient will be placed on Xarelto 15 mg twice a day for 21 days with follow-up ultrasound in 2 weeks. 2. Microfoam chemical ablation of remaining left leg incompetent branch saphenous varicosities after clearing of right leg deep vein thrombus. Nurse notes, history and physical were reviewed and confirmed, see attached forms. The nurse was present throughout the physical exam and consultation Dictated by: Glen Mccormack M.D. on 08/17/2023 at 08:41 Approved by: Glen Mccormack M.D. on 08/17/2023 at 08:44
--- NOTE | 2023-08-17 | VEIN_ITS ---
Patient: SUNNY VILLANUEVA Exam Date: 08/17/2023 : 1955 Gender:M Ordering : DR PRINCESS COLEY M.D. Admission #: [id number] Family : Order #: [id number] CLICK HERE TO VIEW EXAM RADIOLOGY REPORT PROCEDURE: VC EXT VENOUS RT LMTD COMPARISON: VC EXT VENOUS RT LMTD, 07/05/2023. INDICATIONS: Phlebitis of superficial veins of rt lower extremity I80.01 TECHNIQUE: Lower extremity verduzco scale and Duplex Doppler evaluation of the deep venous system from the inguinal ligament through the calf veins. FINDINGS: REGION: Right lower extremity. THROMBI: Positive for DVT. Positive for DVT at mid PTV. The DVT is about 8-10cm in length. Varithena induced thrombus is visualized at mid/med in a night shift, mid/med calf, and mid/med thigh. COMPRESSIBILITY: Non-compressible segments. FLOW: Areas of no flow. OTHER: No patent varicose veins remain. CONCLUSION: 1. Successful post ablation occlusion of treated right lower extremity varicosities. 2. Deep vein thrombus within mid posterior tibial vein. Dictated by: Glen Mccormack M.D. on 08/17/2023 at 08:40 Approved by: Glen Mccormack M.D. on 08/17/2023 at 08:41
== END 2023-08-17 08:04 | disposition home or self-care (01) ==
LOC: VC 08:04
PROVIDERS: PCP Radiology Diagnostic Radiology; Visit Provider Radiology Diagnostic Radiology
DX: I80.01 Phlebitis and thrombophlebitis of superficial vessels of right lower extremity (principal)
CPT/HCPCS: 93971; G0463

== ENCOUNTER 2023-09-04 09:42 | Outpatient (OUT) | payer MEDICARE, OTHER, SELFPAY ==
--- NOTE | 2023-09-04 09:44 | VEIN_ITS ---
Patient: SUNNY VILLANUEVA Exam Date: 09/04/2023 : 1955 Gender:M Ordering : DR SAM KILGORE M.D. Admission #: [id number] Family : Order #: [id number] CLICK HERE TO VIEW EXAM RADIOLOGY REPORT PROCEDURE: VC EXT VENOUS RT LMTD COMPARISON: VC EXT VENOUS RT LMTD, 08/17/2023. VC EXT VENOUS RT LMTD, 07/05/2023. INDICATIONS: I80.01 Phlebitis of superficial veins of rt lower extremity TECHNIQUE: Lower extremity verduzco scale and Duplex Doppler evaluation of the deep venous system from the inguinal ligament through the calf veins. FINDINGS: REGION: Right lower extremity. THROMBI: Positive for DVT. Positive for DVT in PTV that is about a 2-3 cm segment at mid calf. Otherwise negative. COMPRESSIBILITY: Non-compressible segments corresponding to thrombus. FLOW: Absent flow corresponding to thrombus CONCLUSION: Marked improvement in a nonocclusive deep vein thrombus in a posterior tibial vein now measuring 2 cm in length Dictated by: Sam Kilgore MD on 09/04/2023 at 09:58 Approved by: Sam Kilgore MD on 09/04/2023 at 10:00
--- NOTE | 2023-09-04 09:44 | VEIN_ITS ---
Patient: SUNNY VILLANUEVA Exam Date: 09/04/2023 : 1955 Gender:M Ordering : DR SAM KILGORE M.D. Admission #: [id number] Family : Order #: [id number] CLICK HERE TO VIEW EXAM RADIOLOGY REPORT PROCEDURE: FACILITY EST LMTD VEIN CENTER - OFFICE VISIT FOLLOW UP COMPARISON: [facility] EST LMTD, 08/17/2023. FACILITY EST LMTD, 07/25/2023. PROGRESS NOTES: The patient reports no interval problems related to his deep vein thrombus. The patient does continue to complain of right hip pain as well as right leg numbness, this is significantly improved following his back surgery but not resolved. I encouraged him to talk to his surgeon about additional testing including a follow-up MRI. I informed the patient that his symptoms were not consistent his venous disease and his right hip x-ray showed only mild osteoarthritis. Physical exam demonstrates subcutaneous edema of the lower legs. No areas of erythema or warmth to suggest cellulitis or thrombophlebitis. No active ulceration Review of the ultrasound performed the same day demonstrates marked improvement in deep vein thrombus in a posterior tibial vein now measuring 2 cm in length with approximately 50% narrowing. The patient did not fill his prescription for Xarelto due to the high cost, and has been taking 325 milligrams of aspirin daily instead. I informed the patient that he could return to his 82 milligram daily aspirin The patient expressed a desire to proceed with treatment of incompetent left leg varicose veins with micro foam chemical ablation. VEIN/ Facility EST LMTD IMPRESSION: 1. Marked improvement in right posterior tibial vein deep vein thrombus. 2. Persistent left leg incompetent varicose veins. PLAN: Micro foam chemical ablation left leg incompetent varicose veins Nurse notes, history and physical were reviewed and confirmed, see attached forms. The nurse was present throughout the physical exam and consultation Dictated by: Sam Kilgore MD on 09/04/2023 at 12:06 Approved by: Sam Kilgore MD on 09/04/2023 at 12:13
== END 2023-09-04 09:43 | disposition home or self-care (01) ==
LOC: VC 09:42
PROVIDERS: PCP Radiology Diagnostic Radiology; Visit Provider Radiology Diagnostic Radiology
DX: I80.01 Phlebitis and thrombophlebitis of superficial vessels of right lower extremity (principal)
CPT/HCPCS: 93971; G0463

== ENCOUNTER 2023-09-27 10:22 | Outpatient (OUT) | payer MEDICARE, OTHER, SELFPAY ==
--- NOTE | 2023-09-27 10:23 | VEIN_ITS ---
[address] [address] Patient Name: SUNNY VILLANUEVA MRN: [id number] date: 1955 Sex: M Assigned Patient Location: Current Patient Location: Accession/Order Number: [id number] Exam Date: 09/27/2023 10:20 Report Date: 09/27/2023 12:10 At the request of: PRINCESS COLEY Procedure: VC INJ Foam Sclerosant WUS URANIUM PROCESSING SUPERVISOR PROCEDURE: VC INJ Foam Sclerosant WUS URANIUM PROCESSING SUPERVISOR HISTORY: Pain due to varicose veins of bilateral legs I83.813 Pre-operative Diagnosis: CEAP class C3 venous insufficiency with pain, tenderness, edema and incompetent branch saphenous vein(s), chronic venous insufficiency left leg secondary to venous incompetence Post-operative Diagnosis: CEAP class C3 venous insufficiency with pain, tenderness, edema and incompetent branch saphenous vein(s), chronic venous insufficiency left leg secondary to venous incompetence Procedure Performed: 1. Ultrasound-guided microfoam chemical ablation with Varithenaregistered 2. Intraoperative ultrasound guidance Physician: Glen Mccormack M.D. Anesthesia: None Indications for Procedure: 68 year old male. Symptoms including lower extremity pain, swelling, dilated bulging veins for many years despite conservative medical therapy including medical compression stockings, exercise and analgesics. Prior procedures include endovenous laser ablation and microfoam chemical ablation. Multiple incompetent varicosities of the left leg. Duplex scan showed reflux and enlarged diameters up to 5 mm. The patient underwent informed consent including management options where the complications of infection, bleeding, pain, and skin injury were discussed. Particular attention was spent discussing thrombus extension and deep vein thrombosis as well as the possibility of pulmonary embolus and treatment with oral or injectable blood thinners. Procedure: The patient walked to the procedure room. All applicable staff donned appropriate apparel. A procedure timeout was performed to confirm correct patient, correct extremity, correct procedure, and correct room set-up including presence of all applicable supplies, devices, and drugs. A duplex ultrasound, performed by myself confirmed the location and incompetence of branch saphenous varicosities and their course was marked on the skin together with the dilated tributaries. The extent of treatment of the vein and the associated varicosities was determined through ultrasound mapping. The skin was prepped and then punctured with a butterfly needle and advanced under ultrasound guidance. The Varithenaregistered canister was activated and the canister was primed and purged as required in the instructions for use. Varithenaregistered was drawn into a sterile syringe. Varithenaregistered was slowly administered at 0.5-1.0 cc/second with close observation by ultrasound of its course in the vessels. Total volume utilized was: 8 mL intravenous 5 mm varicosity of the distal medial lower left leg. Following administration of Varithenaregistered the leg was elevated and the patient was asked to repeatedly dorsiflex the ankle to limit flow of Varithenaregistered into perforating veins. Once appropriate spasm had been confirmed in the treated veins, the vascular catheter was removed from the leg and light pressure was applied over the puncture site for hemostasis. The common femoral and deep superficial veins were then evaluated for flow and compressibility prior to dressing placement. The lower extremity was kept elevated at 45 degrees above the horizontal and cording material was applied over the saphenous segments and tributaries to allow for eccentric compression over the target vessels including the targeted saphenous vein(s). A multilayer dressing was applied consisting of foam pads, coban and thigh-high 20-30 mm Hg compression elastic support hose were placed on the patient. The leg was lowered only after compression had been applied and the patient was immediately ambulatory. The patient ambulated 10 minutes under supervision and was without apparent concerns at time of release. Post-care instructions include advising patient to keep post-treatment bandages in place and dry for 48 hours, avoid extended periods of inactivity, avoid heavy exercise for one week, wear compression stockings on the treated leg continuously for two weeks, to walk daily for 10 minutes over the next month. The patient was instructed to take an anti-inflammatory medicine as needed and to follow up for color duplex scan of the Saphenous veins, the treated branch saphenous varicosities, the adjacent deep veins, and additional treatment within 7 days. PERSONNEL: Ac Corey RN Electronically authenticated by: GLEN MCCORMACK Date: 09/27/2023 12:10
== END 2023-09-27 10:23 | disposition home or self-care (01) ==
LOC: VC 10:22
PROVIDERS: PCP Radiology Diagnostic Radiology; Visit Provider Radiology Diagnostic Radiology
DX: I83.813 Varicose veins of bilateral lower extremities with pain (principal)
CPT/HCPCS: 36466

== ENCOUNTER 2023-10-03 09:47 | Outpatient (OUT) | payer MEDICARE, OTHER, SELFPAY ==
--- NOTE | 2023-10-03 09:48 | VEIN_ITS ---
Patient Name: SUNNY VILLANUEVA MR#: [id number] : 1955 Exam Date: 10/03/2023 Ordering Doctor: DR SAM KILGORE M.D. RADIOLOGY REPORT PROCEDURE: VC EXT VENOUS LT LIMITED COMPARISON: VC EXT VENOUS LT LIMITED, 07/25/2023. VC EXT VENOUS LT LIMITED, 06/21/2023. INDICATIONS: Phlebitis of superficial veins of lt lower extremity I80.02 TECHNIQUE: Lower extremity verduzco scale and Duplex Doppler evaluation of the deep venous system from the inguinal ligament through the calf veins. FINDINGS: REGION: Left lower extremity. THROMBI: Negative for DVT. Varithena induced thrombus visualized at distal medial calf. COMPRESSIBILITY: Non-compressible segments corresponding to thrombus FLOW: Areas of absent flow corresponding to thrombus OTHER: No patent varicose veins. CONCLUSION: Post ablation occlusion of treated left leg incompetent varicose veins Dictated by: Sam Kilgore MD on 10/03/2023 at 10:20 Approved by: Sam Kilgore MD on 10/03/2023 at 10:20
--- NOTE | 2023-10-03 09:48 | VEIN_ITS ---
Patient Name: SUNNY VILLANUEVA MR#: [id number] : 1955 Exam Date: 10/03/2023 Ordering Doctor: DR SAM KILGORE M.D. RADIOLOGY REPORT PROCEDURE: [facility] EST [facility] - OFFICE VISIT FOLLOW UP COMPARISON: [facility] EST [facility], 09/04/2023. [facility] EST [facility], 08/17/2023. PROGRESS NOTES: The patient reports improvement in leg symptoms from the initial presenting exam. The patient has no problems following micro foam chemical ablation of left leg incompetent varicose veins. The patient has tried exercise to the best of his ability. Physical exam demonstrates no residual varicose veins. Mild subcutaneous edema of the left leg. Two eschars are demonstrated related to trauma as the patient had his leg on a hitch. Review of the ultrasound performed the same day demonstrates occlusive thrombus extending throughout the treated left leg varicose veins. No patent incompetent varicose veins remain. At this time the patient's treatment plan is complete. I instructed him to consider a follow-up visit in 12-24. VEIN/[facility] EST LMT[facility] IMPRESSION: 1. Successful ablation of treated incompetent left leg varicose veins 2. The patient's treatment plan is complete. PLAN: Follow-up in 12-24 months. The patient can call with any problems at any time Nurse notes, history and physical were reviewed and confirmed, see attached forms. The nurse was present throughout the physical exam and consultation Dictated by: Sam Kilgore MD on 10/03/2023 at 10:32 Approved by: Sam Kilgore MD on 10/03/2023 at 10:38
== END 2023-10-03 09:48 | disposition home or self-care (01) ==
LOC: VC 09:47
PROVIDERS: PCP Radiology Diagnostic Radiology; Visit Provider Radiology Diagnostic Radiology
DX: I80.02 Phlebitis and thrombophlebitis of superficial vessels of left lower extremity (principal)
CPT/HCPCS: 93971; G0463